=== PATIENT | female | born 1995 | race Caucasian/White ===

== ENCOUNTER 2019-09-08 15:10 | Emergency (ER) | payer OTHER, SELFPAY ==
--- NOTE | ~2019-09-08 | XR_ITS ---
EXAMINATION: XR chest 1V portable INDICATION: Cough and fever TECHNIQUE: Portable AP chest at 1520 hours COMPARISON: None available FINDINGS: The lungs are free of acute opacities. There is no pleural effusion or pneumothorax. The ca rdiomediastinal silhouette is normal. The visualized bones and soft tissues are unremarkable. IMPRESSION: 1. No acute cardiopulmonary abnormality. Reviewed, dictated and finalized at location B.
[2019-09-08 15:18] VITALS: BP 107/83; PULSE 105; RESP 18; TEMP 36.9; O2SAT 100
--- NOTE | 2019-09-08 15:50 | ED.GENADULT ---
HPI - General Adult General Chief complaint: Upper Respiratory Infection Stated complaint: fever, body ache, cough, worsening yesterday Time Seen by Provider: 09/08/19 15:14 Source: patient Mode of arrival: ambulatory Limitations: no limitations History of Present Illness HPI narrative: Patient is a 24-year-old female who presents to emergency department for evaluation of flulike symptoms for the last day fever chills body aches congestion rhinorrhea cough denies vomiting or diarrhea. Has not taken anything for her symptoms and presents in no distress. Related Data Allergies Allergy/AdvReac Type Severity Reaction Status Date / Time Penicillins Allergy Unknown Unknown Verified 09/08/19 15:24 Review of Systems Review of Systems: All systems reviewed & are unremarkable except as noted in HPI and below PMFSH Family History Family History (Updated 11/05/16 @ 10:53 by DOCTOR UNKNOWN) Other Diabetes mellitus Family history of alcoholism Family history of malignant neoplasm of cervix Family history of thyroid disease Social History Social History (Updated 09/08/19 @ 15:51 by Adithya Tirado PA-C) Smoking status: Current every day smoker Alcohol intake: current Exam Narrative: Exam Narrative: GENERAL: Well-appearing, well-nourished, and in no acute distress. HEAD: Normocephalic, atraumatic. EYES: PERRLA and EOMI. ENT: Nares clear, no rhinorrhea or epistaxis. Mucous membranes moist. NECK: Supple. No adenopathy or masses. CHEST: Clear to auscultation. No respiratory distress. No wheezes rales or rhonchi HEART: Regular rate and rhythm. No murmur heard. EXTREMITIES: Normal range of motion. No edema. SKIN: Warm, dry, no rash. NEURO: No focal deficits. Alert and oriented x3. Cranial nerves II through XII grossly intact PSYCH: Normal mood and affect. Course Course Emergency Course: Patient in the room aware of case findings treatment plan and diagnosis agreeing to follow-up as directed Vital Signs Vital signs: Vital Signs Temperature 98.5 F 09/08/19 15:18 Pulse Rate 105 H 09/08/19 15:18 Respiratory Rate 18 09/08/19 15:18 Blood Pressure 107/83 09/08/19 15:18 Pulse Oximetry 100 09/08/19 15:18 Temperature 98.5 F 09/08/19 15:18 Pulse Rate 105 H 09/08/19 15:18 Respiratory Rate 18 09/08/19 15:18 Blood Pressure 107/83 09/08/19 15:18 Pulse Oximetry 100 09/08/19 15:18 Medical Decision Making MDM Narrative Medical decision making narrative: Patient in the room aware of case findings treatment plan diagnosis afebrile nontoxic-appearing felt appropriate for outpatient reevaluation agreeing to follow-up as directed or to return if symptoms worsen or concerns Vital Signs Vital Signs: Vital Signs Temperature 98.5 F 09/08/19 15:18 Pulse Rate 105 H 09/08/19 15:18 Respiratory Rate 18 09/08/19 15:18 Blood Pressure 107/83 09/08/19 15:18 Pulse Oximetry 100 09/08/19 15:18 Temperature 98.5 F 09/08/19 15:18 Pulse Rate 105 H 09/08/19 15:18 Respiratory Rate 18 09/08/19 15:18 Blood Pressure 107/83 09/08/19 15:18 Pulse Oximetry 100 09/08/19 15:18 Lab Data Labs: Influenza B Screen Positive Reference Range: Negative Strep Screen Presumptive Negative *(Reference Range: Negative)* Discharge Plan Discharge Clinical Impression: Influenza Patient Disposition: Home, Self-Care Condition: Stable Instructions: Antibiotic Form, Influenza (ED) Additional Instructions: Follow up with your primary care doctor in 5-7 days for re-evaluation. Go to ER for worsening pain, vision changes, nausea/vomiting, fever/chills, weakness, chest pain, shortness of breath, numbness/tingling, slurred speech, difficulty walking, change in mental status etc. or any other concerns. Stay well-hydrated Take any prescribed medications as directed. Prescriptions: New oseltamivir [Tamiflu] 75 mg capsule
== END 2019-09-08 16:19 | disposition home or self-care (01) ==
PROVIDERS: Emergency Provider Emergency Medicine
DX: J10.1 Influenza due to other identified influenza virus with other respiratory manifestations (principal); F17.200 Nicotine dependence, unspecified, uncomplicated
CPT/HCPCS: 71045; 87081; 87804; 87880; 99283

== ENCOUNTER 2019-10-25 12:40 | Emergency (ER) | payer OTHER, SELFPAY ==
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
[2019-10-25 12:44] VITALS: BP 123/82; PULSE 93; RESP 18; TEMP 37.5; O2SAT 98
--- NOTE | 2019-10-25 12:55 | PC.NURSE ---
Patient also reports pain to her right 5th finger as well as pain and a laceration to her left knee.
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
== END 2019-10-25 14:36 | disposition home or self-care (01) ==
PROVIDERS: Emergency Provider Emergency Medicine
DX: S09.90XA Unspecified injury of head, initial encounter (principal); F17.200 Nicotine dependence, unspecified, uncomplicated; Y04.2XXA Assault by strike against or bumped into by another person, initial encounter
CPT/HCPCS: 70450; 70486; 72125; 99284; A9270

== ENCOUNTER 2020-04-12 15:39 | Emergency (ER) | payer OTHER, SELFPAY ==
[2020-04-12 15:43] VITALS: BP 125/65; PULSE 102; RESP 18; TEMP 36.2; O2SAT 100
[2020-04-12 16:00] LABS: Basophils Absolute Auto 0.1 K/mm3 (0.0-0.1); Basophils Percent Auto 0.6 % (0.2-1.2); Eosinophils Absolute Auto 0.3 K/mm3 (0-0.3); Eosinophils Percent Auto 2.7 % (0-4.4); Immature Granulocyte Absolute 0.03 K/mm3 (0.00-0.031); Immature Granulocyte Percent A 0.3 % (0-0.5); Lymphocytes Percent Auto 20.6 % (18.3-44.2); Mean Corpuscular Hemoglobin 30.4 pg (26-34); Mean Corpuscular Volume 86.8 fl (80-100); Mean Platelet Volume 10.1 fl (7.4-10.4); Monocytes Absolute Auto 0.6 K/mm3 (0.1-0.6); Monocytes Percent Auto 6.7 % (2.6-8.5); Neutrophils Absolute Auto 6.4 K/mm3 (1.3-6.7); Neutrophils Percent Auto 69.1 % (45.5-73.1); Platelet Count Result 263 k/mm3 (150-375); Red Blood Count 4.61 M/mm3 (4.2-5.4); Red Cell Distribution Width 12.2 % (11.5-14.5); White Blood Count 9.2 K/mm3 (4.5-10.0)
[2020-04-12 16:09] LABS: Alanine Aminotransferase 19 U/L (4-35); Albumin Level 4.1 g/dL (3.5-5.1); Alkaline Phosphatase 57 U/L (38-126); Anion Gap 9 mmol/L (8-16); Aspartate Amino Transferase 25 U/L (14-36); Bilirubin,Total 0.4 mg/dL (0.2-1.3); Blood Urea Nitrogen 5 mg/dL (7-17); Calcium 8.9 mg/dL (8.4-10.2); Carbon Dioxide 26 mmol/L (22-30); Chloride 103 mmol/L (98-107); Estimated Glomerular Filt Rate > 60; Glucose 91 mg/dL (65-105); Lipase 55 U/L (23-300); Potassium 3.8 mmol/L (3.4-5.0); Sodium 138 mmol/L (137-145)
--- NOTE | 2020-04-12 17:45 | ED.ABDPAIN ---
HPI - Abdominal Pain General Chief Complaint: Abdominal Pain Stated Complaint: left abd pain Time Seen by Provider: 04/12/20 17:11 Source: patient History of Present Illness HPI narrative: 25-year-old female presents to emergency department for left flank pain that started around 230 this morning. Patient states she was over at her friend's house when the pain suddenly hit her. Patient states she has never had this pain before in the past. Pain started in the back and wraps around to her left flank area. She has not taken anything for the pain. She states she threw up when she had this pain. She states she just has the residual pain now. Patient is 7 weeks , last menstrual period at the beginning of February. No vaginal bleeding or discharge. No urinary symptoms. Normal bowel movements. Related Data Allergies Allergy/AdvReac Type Severity Reaction Status Date / Time Penicillins Allergy Unknown Unknown Verified 04/12/20 18:15 Review of Systems Review of Systems: Narrative: CONSTITUTIONAL: Denies fever, chills, or sweats. EYES: Denies visual changes, redness, or discharge. ENT: Denies rhinorrhea, congestion, sore throat, or otalgia. CARDIOVASCULAR: Denies chest pain, palpitations, or edema. RESPIRATORY: Denies cough or dyspnea. GASTROINTESTINAL: Reports left flank pain, and vomiting earlier today GENITOURINARY: Denies dysuria or hematuria. SKIN: Denies rash or itching. MUSCULOSKELETAL: Denies back pain, joint pain, or myalgia. NEUROLOGIC: Denies headache, numbness, dizziness, or weakness. PSYCHIATRIC: Denies anxiety or depression. All systems reviewed & are unremarkable except as noted in HPI and below (ROS) PMFSH Family History Family History Other Diabetes mellitus Family history of alcoholism Family history of malignant neoplasm of cervix Family history of thyroid disease Social History Social History Smoking status: Current every day smoker Alcohol intake: current Gender identity (if verbalized by the patient): Female Exam Narrative: Exam Narrative: GENERAL: Well-appearing, well-nourished, and in no acute distress. HEAD: Normocephalic, atraumatic. EYES: PERRLA and EOMI. ENT: Nares clear, no rhinorrhea or epistaxis. Mucous membranes moist. NECK: Supple. CHEST: Clear to auscultation. No respiratory distress. HEART: Regular rate and rhythm. No murmur heard. Normal peripheral pulses. ABDOMEN: Soft, nontender, nondistended, normal active bowel sounds. EXTREMITIES: Normal range of motion. No edema. SKIN: Warm, dry, no rash. NEURO: No focal deficits. Alert and oriented x3. PSYCH: Normal mood and affect. Procedures Other Procedure Procedure 1: Other Procedure: Bedside ultrasound shows IUP with heart rate present. Course Reevaluation(s) Reevaluation #1: 1919 -reevaluated patient, no new complaints. No pain at this time. Vital Signs Vital signs: Vital Signs Temperature 36.2 C L 04/12/20 15:43 Pulse Rate 102 H 04/12/20 15:43 Respiratory Rate 18 04/12/20 15:43 Blood Pressure 125/65 04/12/20 15:43 Pulse Oximetry 100 04/12/20 15:43 Temperature 36.6 C 04/12/20 20:33 Pulse Rate 87 04/12/20 20:33 Respiratory Rate 16 04/12/20 20:33 Blood Pressure 133/78 04/12/20 20:33 Pulse Oximetry 97 04/12/20 20:33 MDM - Abdominal Pain MDM Narrative Medical decision making narrative: 1999 -reevaluated patient, no new complaints. No pain at this time. Blood work and vital signs unremarkable. I did a bedside ultrasound of the patient's left kidney, no signs of hydronephrosis. Left flank pain differential diagnosis includes passing of a kidney stone, gas movement in bowels, muscle spasm. Since patient does not have any pain at this time, we will hold on ordering any further imaging. 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 Counseled patie
[2020-04-12] MEDS: ACETAMINOPHEN 325 MG TABLET 650 MG PO (18:14)
[2020-04-12 18:15] VITALS: BP 132/71; PULSE 89; RESP 14; O2SAT 100
--- NOTE | 2020-04-12 18:16 | PC.NURSE ---
Pt unable to provide urine at this time, declined straight cath, drinking water and will try again and notify nurse when specimen is provided.
[2020-04-12 19:23] LABS: Add Urine Microscopic? YES; Appearance Urine Clear (Clear); Bacteria Urine Trace /hpf; Bilirubin Urine Negative (Negative); Blood Urine Negative (Negative); Color Urine Straw (Yellow); Glucose Urine UA Negative (Negative); Ketones Urine Negative (Negative); Leukocyte Esterase Ur 1+ LEU/UL (Negative); Nitrate Urine Negative (Negative); Protein Urine Negative (Negative); RBC Urine 0-2 /hpf (0-2); Specific Grav Ur 1.008 (1.001-1.035); Squamous Epithelial Cell Urine Moderate /hpf (Few); Urobilinogen Urine Negative mg/dL (<2.0); WBC Urine 0-3 /hpf
[2020-04-12 20:33] VITALS: BP 133/78; PULSE 87; RESP 16; TEMP 36.6; O2SAT 97
== END 2020-04-12 20:36 | disposition home or self-care (01) ==
PROVIDERS: Emergency Medicine; Physician Assistant; Emergency Provider Emergency Medicine
DX: R10.9 Unspecified abdominal pain (principal); F17.200 Nicotine dependence, unspecified, uncomplicated; O26.891 Other specified pregnancy related conditions, first trimester; Z3A.01 Less than 8 weeks gestation of pregnancy
CPT/HCPCS: 36415; 80053; 81001; 81025; 83690; 84702; 85025; 99283; A9270

== ENCOUNTER 2020-07-05 12:17 | Outpatient (CLI) | payer OTHER, SELFPAY ==
--- NOTE | ~2020-07-05 | US_ITS ---
EXAMINATION: US OB /maternal detail DATE: 07/05/2020 13:16 INDICATION: Second trimester anatomic survey TECHNIQUE: Real-time ultrasound of the pelvis was performed. COMPARISON: None. FINDINGS: There is a single living fetus in vertex presentation. The placenta is posterior. heart rate is 154 beats per minute (bpm). cardiac activity and movement are noted. The amniotic fluid index is subjectively normal. A small echogenic focus is noted in the heart. The following anatomy was identified as normal: 4 chamber heart 3 vessel cord cord insertion kidneys urinary bladder stomach spine diaphragm ventricles cisterna magna cerebellum The following biometric data were obtained: Biparietal diameter (BPD): 4.4 cm; head circumference (HC): 16.4 cm; abdominal circumference (AC): 14 .3 cm; femur length (FL): 2.7 cm. These measurements are concordant. Estimated weight is 274 g +/- 41 g, which correlates with the 9th percentile when 11/22/2020 is u sed as estimated date of delivery. As single measurements, these parameters are each equal to the following estimated gestational ages w ith ranges of +/- 2 standard deviations: BPD: 19 weeks 3 days +/- 1 weeks 5 days. HC: 19 weeks 1 days +/- 1 weeks 3 days. AC: 19 weeks 5 days +/- 2 weeks 0 days. FL: 18 weeks 3 days +/- 1 weeks 6 days. estimated gestational age based solely on measurements from this exam is 19 weeks 1 days +/- 1 weeks 2 days. IMPRESSION: 1. Single living fetus in vertex presentation. 2. Estimated weight is 274 g +/- 41 g, which correlates with the 9th percentile when 11/22/2020 i s used as estimated date of delivery. 3. Echogenic intracardiac focus of unclear significance. Recommend correlation with maternal and preg dillan risk factors. Reviewed, dictated and finalized at location A. [employer] IMPRESSION: 1. Single living fetus in vertex presentation. 2. Estimated weight is 274 g +/- 41 g, which correlates with the 9th perc entile when 11/22/2020 is used as estimated date of delivery. 3. Echogenic intracardiac focus of unclear significance. Recommend correlation with maternal and risk factors.
== END 2020-07-05 12:18 | disposition home or self-care (01) ==
PROVIDERS: Visit Provider Obstetrics & Gynecology
DX: Z36.9 Encounter for antenatal screening, unspecified (principal)
CPT/HCPCS: 76805

== ENCOUNTER 2020-10-10 16:32 | Observation (INO) | payer OTHER, SELFPAY ==
[2020-10-10] VITALS (7 sets, daily range): BP systolic 110–127; BP diastolic 58–77; PULSE 83–107
--- NOTE | ~2020-10-10 | US_ITS ---
EXAMINATION: US OB BPP wo non-stress DATE: 10/10/2020 14:52 INDICATION: Nonreactive nonstress test. Third trimester. TECHNIQUE: Real-time pelvic ultrasound was performed. COMPARISON: Ultrasound 07/05/2020 FINDINGS: There is a single living fetus in vertex presentation. The placenta is fundal and posterior. h eart rate is 125 beats per minute (bpm). Biophysical profile performed by the technologist: breathing (30 sec sustained breathing in 30 minutes): 2 out of 2 movement (3 gross body movements in 30 minutes): 2 out of 2 tone (one episode of sbmsofv-jiiidgkrk-azadwdu limb movement): 2 out of 2 Amniotic fluid pocket (2 cm): 2 out of 2 Total score: 8 out of 8 IMPRESSION: 1. Single living fetus in vertex presentation. 2. Biophysical profile 8 out of 8. Reviewed, dictated and finalized at location A.
--- NOTE | 2020-10-10 14:58 | PC.NURSE ---
Dr Jonhson notified of contractions, orders for FFN and SVE. Cont to monitor contractions and call Dr De Santiago with FFN results.
[2020-10-10 16:01] LABS: Fetal Fibronectin Negative
--- NOTE | 2020-10-10 16:26 | PC.NURSE ---
Dr De Santiago notified of FFN results and current contractions pattern, orders received.
[2020-10-10] MEDS: TERBUTALINE SULFATE 1 MG/ML VIAL 0.25 MG SUB-Q (16:36)
[2020-10-10 17:32] LABS: Glucose Point of Care 97 (65-105)
--- NOTE | 2020-10-10 19:05 | PC.NURSE ---
spoke with Dr. De Santiago- pt not feeling contractions and wanting to d/c home. order received to d/c home.
--- NOTE | 2020-10-31 08:38 | PM.OBTRLD ---
OB - Triage/Final Diagnosis Visit Information Reason for evaluation: other (nonreactive NST in office) Comments/Additional reasons for admission: I have assessed the risk for this patient, Louann Meade Juan Luis, and determined that she would benefit from observation care. Evaluation Laboratory results: Laboratory Tests 10/10/20 10/10/20 15:10 17:29 POC Capillary Glucose 97 Fibronectin Negative
== END 2020-10-10 19:18 | disposition home or self-care (01) ==
PROVIDERS: Obstetrics & Gynecology; Admitting Provider Obstetrics & Gynecology Gynecology; Visit Provider Obstetrics & Gynecology Gynecology
DX: O60.03 Preterm labor without delivery, third trimester (principal); Z3A.33 33 weeks gestation of pregnancy
CPT/HCPCS: 76819; 82731; 82948; 96372; G0378; G0379; J3105

== ENCOUNTER 2020-10-20 13:39 | Observation (INO) | payer OTHER, SELFPAY ==
[2020-10-20] VITALS (70 sets, daily range): BP systolic 116; BP diastolic 74; PULSE 28–121; TEMP 36.6; O2SAT 85–100; BMI 29.7
--- NOTE | 2020-10-20 14:31 | OBADM ---
This patient, Louann Mcknight, admitted to the OB room [facility] for observation. Patient oriented to hospital policies and general routines including ID bracelet, bed and alarms, visiting hours, pain management, procedures, bathroom and other care routines, personal items, smoking policy, room service/diet, call light, and visiting hours. Patient is encouraged to report perceived risks to care and to ask questions if she does not understand what she is told or what she should do.
[2020-10-20] MEDS: TERBUTALINE SULFATE 1 MG/ML VIAL 0.25 MG SUB-Q ×2 (14:40→17:35)
[2020-10-20 14:58] LABS: Add Urine Microscopic? YES; Appearance Urine Cloudy (Clear); Bacteria Urine Trace /hpf; Bilirubin Urine Negative (Negative); Blood Urine Negative (Negative); Color Urine Yellow (Yellow); Glucose Urine UA Negative (Negative); Ketones Urine Negative (Negative); Leukocyte Esterase Ur 3+ LEU/UL (Negative); Mucus Urine Rare /lpf; Nitrate Urine Negative (Negative); Protein Urine Negative (Negative); Specific Grav Ur 1.009 (1.001-1.035); Squamous Epithelial Cell Urine Many /hpf (Few); Urobilinogen Urine Negative mg/dL (<2.0)
--- NOTE | 2020-11-15 10:01 | PM.OBTRLD ---
OB - Triage/Final Diagnosis Visit Information Comments/Additional reasons for admission: I have assessed the risk for this patient, Louann Mcknight, and determined that she would benefit from observation care. Evaluation Laboratory results: Laboratory Tests 10/20/20 14:47 Urine Color Yellow Urine Appearance Cloudy H Urine pH 6.0 Ur Specific [place] 1.009 Urine Protein Negative Urine Glucose (UA) Negative Urine Ketones Negative Ur Blood (Man) Negative Urine Nitrate Negative Urine Bilirubin Negative Urine Urobilinogen Negative Leukocyte Esterase Rfl 3+ H Urine RBC 11-20 H Urine WBC 4-6 H Ur Squamous Epith Cells Many H Urine Bacteria Trace Urine Mucus Rare Final Diagnosis (1) contractions: Code(s): O47.9 - False labor, unspecified Status: Acute
== END 2020-10-20 20:12 | disposition home or self-care (01) ==
PROVIDERS: Admitting Provider Obstetrics & Gynecology; Visit Provider Obstetrics & Gynecology
DX: O47.03 False labor before 37 completed weeks of gestation, third trimester (principal); Z3A.35 35 weeks gestation of pregnancy
CPT/HCPCS: 81001; 96372; G0378; G0379; J3105

== ENCOUNTER 2020-11-10 13:42 | Outpatient (RCR) | payer OTHER, SELFPAY ==
[2020-11-08 10:45] VITALS: BP 117/81; PULSE 81
--- NOTE | 2020-11-08 11:53 | PC.NURSE ---
BPP 01/22, Spoke with Dr. Johnson at 1151, orders to discharge patient to home with follow up in office.
--- NOTE | ~2020-11-10 | US_ITS ---
EXAMINATION: US OB BPP wo non-stress DATE: 11/08/2020 11:45 INDICATION: Nonreactive nonstress test. Third trimester. TECHNIQUE: Real-time pelvic ultrasound was performed. COMPARISON: Ultrasound 10/10/2020 FINDINGS: There is a single living fetus in vertex presentation. The placenta is posterior and fundal. h eart rate is 129 beats per minute (bpm). Biophysical profile performed by the technologist: breathing (30 sec sustained breathing in 30 minutes): 2 out of 2 movement (3 gross body movements in 30 minutes): 2 out of 2 tone (one episode of ywtxjdg-lrsfuacyb-bkyhnxz limb movement): 2 out of 2 Amniotic fluid pocket (2 cm): 2 out of 2 Total score: 8 out of 8 IMPRESSION: 1. Single living fetus in vertex presentation. 2. Biophysical profile 8 out of 8. Reviewed, dictated and finalized at location B.
--- NOTE | ~2020-11-10 | US_ITS ---
EXAMINATION: US OB BPP wo non-stress DATE: 11/10/2020 15:56 CDT INDICATION: Gestational diabetes TECHNIQUE: Real-time transabdominal obstetric ultrasound. FINDINGS: Ultrasound dated There is a single living fetus in vertex presentation. The placenta is posterior without placenta pr evia. cardiac activity and movement is noted with a heart rate of 141 beats per minute. Biophysical profile: breathin of 2 movement: 2 of 2 tone: 2 of 2 Amniotic flud pocket: 2 of 2 Total score: 8 of 8 IMPRESSION: 1. Single living intrauterine in vertex presentation. 2: Total biophysical profile score of 8/8. Reviewed, dictated and finalized at location A.
[2020-11-10 18:39] VITALS: BP 118/79; PULSE 87
== END 2020-11-23 07:44 | disposition home or self-care (01) ==
LOC: ANHOBOP 13:42
PROVIDERS: Visit Provider Obstetrics & Gynecology
DX: O24.419 Gestational diabetes mellitus in pregnancy, unspecified control (principal); Z3A.38 38 weeks gestation of pregnancy
CPT/HCPCS: 59025; 76819

== ENCOUNTER 2020-11-12 22:02 | Outpatient (CLI) | payer OTHER, SELFPAY ==
[2020-11-12 22:42] VITALS: BP 128/87; PULSE 86
== END 2020-11-12 22:46 | disposition home or self-care (01) ==
LOC: ANHOBOP 22:36 → ANHLDR 22:37
PROVIDERS: Visit Provider Obstetrics & Gynecology
DX: Z03.71 Encounter for suspected problem with amniotic cavity and membrane ruled out (principal)
CPT/HCPCS: 59025; 84112; 99199

== ENCOUNTER 2020-11-16 04:59 | Inpatient (IN) | payer OTHER, SELFPAY ==
[2020-11-16] VITALS (75 sets, daily range): BP systolic 87–137; BP diastolic 50–87; PULSE 65–100; RESP 16; TEMP 36.6–37.1; O2SAT 96–100; BMI 30.4
[2020-11-16 05:50] LABS: Basophils Percent Auto 0.4 % (0.2-1.2); Eosinophils Absolute Auto 0.1 K/mm3 (0-0.3); Eosinophils Percent Auto 1.2 % (0-4.4); Hematocrit 31.4 % (37.0-47.0); Hemoglobin 10.5 g/dL (12.0-15.0); Immature Granulocyte Absolute 0.06 K/mm3 (0.00-0.031); Immature Granulocyte Percent A 0.6 % (0-0.5); Lymphocytes Absolute Auto 1.75 K/mm3 (0.9-3.2); Lymphocytes Percent Auto 18.2 % (18.3-44.2); Mean Corpuscular HGB Conc 33.4 g/dl (32-36); Mean Corpuscular Hemoglobin 28.8 pg (26-34); Mean Platelet Volume 10.2 fl (7.4-10.4); Monocytes Absolute Auto 0.7 K/mm3 (0.1-0.6); Monocytes Percent Auto 6.8 % (2.6-8.5); Neutrophils Percent Auto 72.8 % (45.5-73.1); Platelet Count Result 222 k/mm3 (150-375); Red Blood Count 3.65 M/mm3 (4.2-5.4); Red Cell Distribution Width 12.4 % (11.5-14.5); White Blood Count 9.6 K/mm3 (4.5-10.0)
[2020-11-16] MEDS: LACTATED RINGERS 1,000 ML 125 ML IV CONT ×3 (06:10→10:33)
[2020-11-16] MEDS: OXYTOCIN 30 UNITS/NS 500 ML 30 UNITS/500 ML BAG IV CONT (06:35)
--- NOTE | 2020-11-16 06:49 | WPDANESEPPF ---
Anes - Initial Pre Proc Eval Procedure: labor epidural Date/Time: 11/16/20 06:49 Surgeon: Rudolph Johnson MD Pre Op Diagnosis: labor pain Pre Op Diagnosis: IOL Patient Data Age: 25 Gender: F Height: 1.47 m Weight: 66 kg Last Vital Signs Pulse 73 11/16/20 06:30 BP 126/82 11/16/20 06:30 Allergies Allergy/AdvReac Type Severity Reaction Status Date / Time Penicillins Allergy Mild Rash Verified 10/24/20 12:34 amoxicillin Allergy Rash Verified 10/24/20 12:34 Home Medications Medication Instructions Recorded Confirmed Type Humulin N NPH U-100 Insulin 20 unit SUBCUT HS 10/10/20 10/10/20 History ergocalciferol (vitamin D2) 1,250 mcg PO WEEKLY 10/10/20 10/10/20 History Laboratory Tests 11/16/20 11/16/20 05:36 05:36 WBC 9.6 K/mm3 K/mm3 (4.5-10.0) RBC 3.65 M/mm3 L M/mm3 (4.2-5.4) Hgb 10.5 g/dL L D g/dL (12.0-15.0) Hct 31.4 % L % (37.0-47.0) MCV 86.0 fl fl (80-100) MCH 28.8 pg pg (26-34) MCHC 33.4 g/dl g/dl (32-36) RDW 12.4 % % (11.5-14.5) Plt Count 222 k/mm3 k/mm3 (150-375) MPV 10.2 fl fl (7.4-10.4) Immature Gran % (Auto) 0.6 % H % (0-0.5) Neut % (Auto) 72.8 % % (45.5-73.1) Lymph % (Auto) 18.2 % L % (18.3-44.2) [place] % (Auto) 6.8 % % (2.6-8.5) Eos % (Auto) 1.2 % % (0-4.4) Baso % (Auto) 0.4 % % (0.2-1.2) Lymph # (Auto) 1.75 K/mm3 K/mm3 (0.9-3.2) [place] # (Auto) 0.7 K/mm3 H K/mm3 (0.1-0.6) Eos # (Auto) 0.1 K/mm3 K/mm3 (0-0.3) Baso # (Auto) 0.0 K/mm3 K/mm3 (0.0-0.1) Abs Immat Gran (auto) 0.06 K/mm3 H K/mm3 (0.00-0.031) Absolute Neuts (auto) 7.0 K/mm3 H K/mm3 (1.3-6.7) Absolute Nucleated RBC 0.0 K/mm3 K/mm3 (0.0-0.012) Nucleated RBC % 0.0 % % (0.0-0.2) RPR Pending Patient hx anesthesia problems: none Family hx anesthesia problems: none PMFSH Past Medical History Medical History (Updated 11/16/20 @ 06:50 by Gui Pena DO) Anxiety Depression GDM (gestational diabetes mellitus) Graves disease Family History Family History (Updated 10/24/20 @ 12:38 by Krishna Ahumada RN) Grandparent Diabetes mellitus Family history of thyroid disease Father Family history of alcoholism Mother Family history of thyroid disease Family history of malignant neoplasm of cervix Heart disease Coronary stent patent Cardiac defibrillator in place Social History Social History Smoking status: Light tobacco smoker Tobacco type: cigarettes Alcohol intake: current Substance use: current Gender identity (if verbalized by the patient): Female Spiritual care concerns: No Anes - Eval Final PreProcedure Day of Procedure 11/16/20 06:49 Patient weight: obese ASA classification: III Anesthesia type and monitoring: regional epidural Informed Consent: The patient's anesthetic plan and its attendant risks and benefits were discussed with the patient/family/POA. Questions were solicited and answers provided to the satisfaction of the patient/family/POA.
[2020-11-16 07:01] LABS: Rapid Plasma Reagin Non-Reactive (NonReactive)
--- NOTE | 2020-11-16 08:22 | WPDOBADMIT ---
Obstetrics - Admit Note Admission Note: record reviewed. No pertinent additions to the history and/or any subsequent changes in the physical findings that are not consistent with the expected course of the were found. Arom clear fluid 3-/-2 vertex Additions to the history and/or subsequent changes in the physical findings follow. None.
[2020-11-16 10:32] LABS: Glucose Point of Care 95 mg/dl (65-105)
[2020-11-16 11:58] LABS: Glucose Point of Care 69 mg/dl (65-105)
[2020-11-16] MEDS: OXYTOCIN 30 UNITS/NS 500 ML 30 UNITS/500 ML BAG 125 UNITS IV CONT (13:03)
--- NOTE | 2020-11-16 15:15 | PC.NURSE ---
Patient transferred to post room #1515 via wheelchair. Support person present. Oriented to unit, room, information board, rooming in, admission packet and security measures. Patient verbalizes understanding.
[2020-11-16] MEDS: IBUPROFEN 600 MG TABLET PO (15:58)
[2020-11-17] VITALS: BP 115/75; PULSE 61; RESP 16; TEMP 36.6
[2020-11-17] MEDS: IBUPROFEN 600 MG TABLET PO ×2 (01:25→08:58)
--- NOTE | 2020-11-17 04:02 | PM.OBPRVD ---
OB - Delivery Note Procedure Delivery date: 11/16/20 Procedure: events: Labor Induction Intrapartal events: None Induction method: AROM and per pitocin protocol Delivery monitor: external FHT and external uterine Route of delivery: Laceration Description: None Specimen: No Quantitative Blood Loss (ml): 75 Anesthesia type: Epidural Disposition: floor Baby Date of : 11/16/20 Time of : 12:33 Weeks of gestation at delivery: 39 gender: Female Weight (pounds): 5 Weight (ounces): 15 presentation: vertex Placenta delivery description: Spontaneous cord vessel description: 3 Vessels, Clamped/Cut and Around Body x1 score one minute: 9 score five minutes: 9
[2020-11-17 04:45] VITALS: BP 120/88; PULSE 61; RESP 16; TEMP 36.8
[2020-11-17 05:57] LABS: Hematocrit 34.7 % (37.0-47.0); Hemoglobin 11.5 g/dL (12.0-15.0)
--- NOTE | 2020-11-17 07:26 | WPDANLDPN2 ---
Anes-Prog Note L&D Date/Time: 11/17/20 07:26 Comfortable throughout: labor and delivery Neuraxial method: epidural Epidural/Spinal procedure site: clean & non-tender Neuro status: Neuro function grossly intact. Cardiovascular status: normal Respiratory status: normal Airway patency: baseline Mental status: baseline Post-Op hydration status: normal Vital Signs: Last Vital Signs Temp 36.8 C 11/17/20 04:45 Pulse 61 11/17/20 04:45 Resp 16 11/17/20 04:45 BP 120/88 11/17/20 04:45 Pulse Ox 99 11/16/20 15:20 Pain score (VAS): 06/26 I/O: Intake & Output 11/16/20 11/16/20 11/17/20 15:59 23:59 07:59 Intake Total 2000 Output Total 75 Balance 1925 Post-procedural complaints: none Patient feedback: Patient satisfied with anesthetic care.
[2020-11-17 08:00] VITALS: BP 120/77; PULSE 81; RESP 18; TEMP 36.6
[2020-11-17] MEDS: DOCUSATE SODIUM 100 MG CAPSULE PO (08:58)
[2020-11-17] MEDS: BENZOCAINE 20% AER SPR (*SP) 56 GM CAN 1 SPRAY TOPICAL (08:58)
--- NOTE | 2020-11-17 09:00 | PC.NURSE ---
Patient was given the opportunity to view the discharge video Mother & Baby Care, The First Two Weeks and to ask questions. Patient declined viewing the video and has been given the mother/baby guide for home reference.
[2020-11-17 12:06] VITALS: BP 110/78; PULSE 76; RESP 16; TEMP 36.5; O2SAT 100
--- NOTE | 2020-11-17 13:37 | PC.NURSE ---
Self care and infant care discharge instructions given including follow up visit date and time. Mother verbalized understanding. No questions or concerns voiced. Very pleasant and excited for discharge.
--- NOTE | 2020-11-17 16:00 | PCCCNOTE ---
Care Coordination met with pt. this morning to discuss discharge planning. Pt.'s current D/C plan is to return home with FOTimbo, her daughter, and baby. Pt. states that she has everything needed to safely bring baby home. Pt. confirms that she has a car seat for baby. Pt. states SEBASTIAN is very supportive and that she also has local family support. Pt.'s daughter is currently staying with pt.'s mother. Pt. denies any prior DCFS activity, she is not current with [facility] but has been provided resources. Pt. will bottle feed baby and has a assurance engineer set up for baby. Pt. did admit to Marijuana use at time of admission. Pt. was not tested, baby's urine was tested and came back negative. Pt. admits that the Marijuana use was to help her nausea and lack of appetite, pt. states she stopped Marijuana use a couple months ago since she no longer saw the need for it. Pt. has no concerns about bringing baby home. No further need for CC services at this time.
[2020-11-18 08:44] VITALS: BP 120/83; PULSE 79; RESP 20; TEMP 36.7; O2SAT 99
--- NOTE | 2020-12-05 11:00 | P.DS_ITS ---
DS: Admitting Diagnosis Admitting Diagnosis Admitting Diagnosis: labor induction DS: Discharge Diagnosis Discharge Diagnosis (1) (normal spontaneous vaginal delivery): Code(s): O80 - Encounter for full-term uncomplicated delivery Status: Acute OB - DS: Summary OB Procedures : NST and Ultrasound OB Procedures Intrapartum: Spontaneous Vag Delivery OB Procedures: : None Time Spent with Patient Time attestation: Total time spent providing and/or coordinating discharge services: DS: Data Data Completed and Pending Completed studies during hospitalization: Pending at discharge 11/16/20 13:49 Surgical [PTH] Routine Discharge Plan Discharge Consulting providers: Parker Cano ; Gui Pena Discharging Clinician: Ronit Johnson Patient Disposition: Home, Self-Care Activity: pelvic rest Diet: regular Discharge Instructions: Education: Mom and Baby Guide Given to: Mother Follow-Up: Call your delivering provider's office for an appointment to be seen in: 4 Weeks Mom and baby should come to the [facility] for the follow-up appointment. Appointment Date/Time: Wednesday, November 18, 2020 at 9:00 am What to expect at your follow-up visit: Blood Pressure Check Physical Assessment Call [phone] if you are unable to keep your appointment time. BREAST CARE: * Wear a snug supportive bra. Bottle Feeding: * May apply ice packs EPISIOTOMY/PERINEAL CARE: * Until bleeding stops, use your daily bottle after urinating * Change your pad frequently throughout the day * You may take sitz baths several times a day (fill your bathtub with warm water and soak for 20 minutes.) Do NOT bathe in the water * No tub baths until seen by your physician - You may shower ACTIVITY: * Rest as much as possible. * Do not exercise or lift anything heavier than your baby (such as laundry or other children.) * Avoid stairs or driving as much as possible. * Do not put anything into the vagina. No douching, tampons, or sexual activity until seen by physician. NOTIFY PHYSICIAN IF YOU HAVE ANY QUESTIONS OR IF ANY OF THE FOLLOWING SYMPTOMS OCCUR: * If your episiotomy becomes red, swollen, or more painful than what you have experienced in the hospital. * If your vaginal bleeding becomes foul smelling. * If your vaginal bleeding becomes more heavy than a period or if your bleeding changes from pink to bright red. However, you may pass an occasional walnut- sized clot once or twice for the first week . * If you experience a sharp, shooting pain in you calves. * If you discover a hard, reddened area on your breast or if you experience flu- like symptoms. DIET: * Eat regular, well-balanced meals. * Drink plenty of fluids daily. If , drink to thirst. Patient Instructions: Antibiotic Form Stand Alone Forms: General Discharge Information Follow-up/Referrals: Rudolph Johnson MD [Physician] - 6 Weeks Discharge Medications: Continued ergocalciferol (vitamin D2) 1,250 mcg (50,000 unit) capsule 1,250 mcg PO WEEKLY RF: 0 Discontinued Humulin N NPH U-100 Insulin 100 unit/mL suspension 20 unit SUBCUT HS RF: 0 Date of admission: 11/16/20 04:59 Primary Care Provider: PHYSICIAN,TEAR DOWN WORKER Admitting Provider: Rudolph Johnson Attending physician on admission: Rudolph Johnson Condition: Sta
== END 2020-11-17 14:23 | disposition home or self-care (01) | DRG 560 ==
LOC: ANHLDR 05:02 → ANHOB2 16:15
PROVIDERS: Admitting Provider Obstetrics & Gynecology; Visit Provider Obstetrics & Gynecology
DX: O24.429 Gestational diabetes mellitus in childbirth, unspecified control (principal); O69.82X0 Labor and delivery complicated by other cord entanglement, without compression, not applicable or unspecified; Z3A.39 39 weeks gestation of pregnancy; Z37.0 Single live birth
CPT/HCPCS: 36415; 82948; 85014; 85018; 85025; 86592; 86850; 86900; 86901; 88307; A9270; J2590; J2795; J7120

== ENCOUNTER 2022-10-20 19:28 | Observation (INO) | payer OTHER, SELFPAY ==
[2022-10-20] VITALS (22 sets, daily range): BP systolic 108–126; BP diastolic 69–76; PULSE 75–108; O2SAT 98–100; BMI 27.1
[2022-10-20 20:32] LABS: Appearance Urine Cloudy (Clear); Bacteria Urine Rare /hpf; Bilirubin Urine Negative (Negative); Blood Urine Negative (Negative); Color Urine Yellow (Yellow); Glucose Urine UA Negative (Negative); Ketones Urine Trace mg/dL (Negative); Leukocyte Esterase Ur 2+ LEU/UL (Negative); Nitrate Urine Negative (Negative); Non Pathogenic Casts 0-2; Protein Urine Trace mg/dL (Negative); RBC Urine 0-2 /hpf (0-2); Specific Grav Ur 1.021 (1.001-1.035); Squamous Epithelial Cell Urine Moderate /hpf (Few); WBC Urine 21-50 /hpf; pH Urine 6.5 (5.0-9.0)
[2022-10-20 20:38] LABS: Add Urine Microscopic? YES
[2022-10-20] MEDS: TERBUTALINE SULFATE 1 MG/ML VIAL 0.25 MG SUB-Q (22:00)
[2022-10-20 22:14] LABS: Hematocrit 36.1 % (37.0-47.0); Hemoglobin 12.2 g/dL (12.0-15.0); Mean Corpuscular HGB Conc 33.8 g/dl (32-36); Mean Corpuscular Hemoglobin 29.6 pg (26-34); Mean Corpuscular Volume 87.6 fl (80-100); Mean Platelet Volume 9.2 fl (7.4-10.4); Platelet Count Result 237 k/mm3 (150-375); Red Blood Count 4.12 M/mm3 (4.2-5.4); Red Cell Distribution Width 12.6 % (11.5-14.5); White Blood Count 8.8 K/mm3 (4.5-10.0)
[2022-10-20 22:24] LABS: Alanine Aminotransferase 18 U/L (6-35); Albumin Level 3.7 g/dL (3.5-5.1); Alkaline Phosphatase 106 U/L (38-126); Anion Gap 6 mmol/L (8-16); Aspartate Amino Transferase 20 U/L (14-36); Bilirubin,Total 0.4 mg/dL (0.2-1.3); Blood Urea Nitrogen 6 mg/dL (7-17); Calcium 8.1 mg/dL (8.4-10.2); Carbon Dioxide 24 mmol/L (22-30); Chloride 104 mmol/L (98-107); Estimated Glomerular Filt Rate > 60; Glucose 88 mg/dL (65-110); Potassium 3.5 mmol/L (3.4-5.0); Sodium 134 mmol/L (137-145)
[2022-10-20] MEDS: cefTRIAXone 1 GM VIAL IM (22:24)
[2022-10-20 22:52] LABS: Fetal Fibronectin Positive
--- NOTE | 2022-10-20 23:33 | OBADM ---
This patient, Louann Mcknight, admitted to the OB room OB Post 117 for observation. Patient/family oriented to hospital policies and general routines including ID bracelet, bed and alarms, visiting hours, pain management, procedures, bathroom and other care routines, personal items, smoking policy, room service/diet, and visiting hours. Patient/Family are encouraged to report perceived risks to care and to ask questions if they do not understand what they are told or what they should do.
[2022-10-21] VITALS (26 sets, daily range): BP systolic 118–130; BP diastolic 67–76; PULSE 28–118; O2SAT 72–100
[2022-10-21] MEDS: TERBUTALINE SULFATE 1 MG/ML VIAL 0.25 MG SUB-Q
--- NOTE | 2022-11-05 13:33 | PM.OBTRLD ---
OB - Triage/Final Diagnosis Visit Information Comments/Additional reasons for admission: I have assessed the risk for this patient, Louann Mcknight, and determined that she would benefit from observation care. Evaluation Laboratory results: Laboratory Tests 10/20/22 10/20/22 10/20/22 20:11 22:07 22:10 WBC 8.8 RBC 4.12 L Hgb 12.2 Hct 36.1 L MCV 87.6 MCH 29.6 MCHC 33.8 RDW 12.6 Plt Count 237 MPV 9.2 Sodium 134 L Potassium 3.5 Chloride 104 Carbon Dioxide 24 Anion Gap 6 L BUN 6 L Creatinine 0.40 L Estim Creat Clear Calc Not Reportable Estimated GFR > 60 Glucose 88 Calcium 8.1 L Total Bilirubin 0.4 AST 20 ALT 18 Alkaline Phosphatase 106 Total Protein 7.0 Albumin 3.7 Urine Color Yellow Urine Appearance Cloudy H Urine pH 6.5 Ur Specific [place] 1.021 Urine Protein Trace Urine Glucose (UA) Negative Urine Ketones Trace H Ur Blood (Man) Negative Urine Nitrate Negative Urine Bilirubin Negative Urine Urobilinogen 1.0 Leukocyte Esterase Rfl 2+ H Urine RBC 0-2 Urine WBC 21-50 H Ur Squamous Epith Cells Moderate Urine Bacteria Rare Urine Casts 0-2 Fibronectin Positive Final Diagnosis (1) contractions: Code(s): O47.9 - False labor, unspecified Status: Acute
--- NOTE | 2022-11-05 13:36 | PM.OBTRLD ---
OB - Triage/Final Diagnosis Visit Information Comments/Additional reasons for admission: I have assessed the risk for this patient, Louann Mcknight, and determined that she would benefit from observation care. Evaluation Laboratory results: Laboratory Tests 10/20/22 10/20/22 10/20/22 20:11 22:07 22:10 WBC 8.8 RBC 4.12 L Hgb 12.2 Hct 36.1 L MCV 87.6 MCH 29.6 MCHC 33.8 RDW 12.6 Plt Count 237 MPV 9.2 Sodium 134 L Potassium 3.5 Chloride 104 Carbon Dioxide 24 Anion Gap 6 L BUN 6 L Creatinine 0.40 L Estim Creat Clear Calc Not Reportable Estimated GFR > 60 Glucose 88 Calcium 8.1 L Total Bilirubin 0.4 AST 20 ALT 18 Alkaline Phosphatase 106 Total Protein 7.0 Albumin 3.7 Urine Color Yellow Urine Appearance Cloudy H Urine pH 6.5 Ur Specific [place] 1.021 Urine Protein Trace Urine Glucose (UA) Negative Urine Ketones Trace H Ur Blood (Man) Negative Urine Nitrate Negative Urine Bilirubin Negative Urine Urobilinogen 1.0 Leukocyte Esterase Rfl 2+ H Urine RBC 0-2 Urine WBC 21-50 H Ur Squamous Epith Cells Moderate Urine Bacteria Rare Urine Casts 0-2 Fibronectin Positive Final Diagnosis (1) False labor: Code(s): O47.9 - False labor, unspecified Status: Acute
== END 2022-10-21 01:45 | disposition home or self-care (01) ==
PROVIDERS: Admitting Provider Obstetrics & Gynecology; Visit Provider Obstetrics & Gynecology
DX: O47.02 False labor before 37 completed weeks of gestation, second trimester (principal); Z3A.26 26 weeks gestation of pregnancy
CPT/HCPCS: 36415; 80053; 81001; 82731; 85027; 87086; 87088; 96360; 96372; A9270; G0378; G0379; J0696; J3105; J7121

== ENCOUNTER 2022-10-21 21:58 | Observation (INO) | payer OTHER, SELFPAY ==
[2022-10-21] VITALS (21 sets, daily range): BP systolic 106–117; BP diastolic 61–71; PULSE 89–111; TEMP 36.7; O2SAT 93–99
--- NOTE | 2022-10-21 21:58 | PC.NURSE ---
Patient arrived to OB unit ambulating. Patient reports contractions that started while she was at [facility] at 2000. Patient states after returning home from [facility] at approximately 2100 contractions became more frequent. patient reports contractions as mild in intensity. Abdomen palpates soft between contractions and mild contraction palpated. movement noted and reported by patient.
--- NOTE | 2022-10-21 22:38 | PC.NURSE ---
Notified Dr. Garcia of patient contractions. Notified of VS. FHT appropriate for gestational age. Orders received.
[2022-10-21] MEDS: TERBUTALINE SULFATE 1 MG/ML VIAL 0.25 MG SUB-Q (22:48)
--- NOTE | 2022-10-21 22:48 | PC.NURSE ---
Patient updated on plan of care. Patient medication education given for procardia and terbutaline. Patient states understanding of all education and denies questions.
[2022-10-21] MEDS: NIFEdipine 30 MG TAB.ER.24 PO (22:53)
--- NOTE | 2022-10-21 23:49 | PC.NURSE ---
Updated Dr. Garcia on maternal assessment including continued contractions, orders received.
[2022-10-22] VITALS (19 sets, daily range): BP systolic 115–121; BP diastolic 62–64; PULSE 54–111; RESP 16; TEMP 37; O2SAT 82–100
[2022-10-22] MEDS: DEXTROSE 5%/LACTATED RINGERS 1,000 ML 999 ML IV CONT (00:12)
[2022-10-22] MEDS: TERBUTALINE SULFATE 1 MG/ML VIAL 0.25 MG SUB-Q (00:13)
--- NOTE | 2022-10-22 01:10 | PC.NURSE ---
Patient states she is no longer having contractions or cramping and is resting comfortably. Discharge instruction reviewed with patient. labor precautions were reviewed. Patient instructed to call Dr. Chowdhury office to schedule follow-up appointment 10/22/2022. Patient instructed to picker feeder procardia prescription at her pharmacy and take it as prescribed. Patient states understanding of all discharge instructions and precautions and denies questions. Patient states she is not having any pain and is comfortable being discharged. Patient left OB unit ambulating at 0111.
--- NOTE | 2022-11-25 18:02 | PM.OBTRLD ---
OB - Triage/Final Diagnosis Visit Information Comments/Additional reasons for admission: I have assessed the risk for this patient, Louann Mcknight, and determined that she would benefit from observation care. Final Diagnosis (1) False labor: Code(s): O47.9 - False labor, unspecified Status: Acute
== END 2022-10-22 01:11 | disposition home or self-care (01) ==
PROVIDERS: Admitting Provider Obstetrics & Gynecology; Visit Provider Obstetrics & Gynecology
DX: O47.02 False labor before 37 completed weeks of gestation, second trimester (principal); Z3A.26 26 weeks gestation of pregnancy
CPT/HCPCS: 96360; 96372; A9270; G0378; G0379; J3105; J7121

== ENCOUNTER 2022-10-26 10:40 | Observation (INO) | payer OTHER, SELFPAY ==
[2022-10-26] VITALS (10 sets, daily range): BP systolic 102–121; BP diastolic 57–75; PULSE 79–109
--- NOTE | 2022-10-26 11:20 | OBADM ---
This patient, Louann Mcknight, admitted to the OB room OB Post 115 for observation. Patient/family oriented to hospital policies and general routines including ID bracelet, bed and alarms, visiting hours, pain management, procedures, bathroom and other care routines, personal items, smoking policy, room service/diet, and visiting hours. Patient/Family are encouraged to report perceived risks to care and to ask questions if they do not understand what they are told or what they should do.
[2022-10-26] MEDS: BETAMETHASONE SOD PHOS/ACETATE 30 MG/5 ML VIAL 12 MG IM (12:11)
[2022-10-26] MEDS: TERBUTALINE SULFATE 1 MG/ML VIAL 0.25 MG SUB-Q (13:03)
--- NOTE | 2022-10-29 17:04 | PM.OBTRLD ---
OB - Triage/Final Diagnosis Visit Information Date of evaluation: 10/26/22 Reason for evaluation: threatened labor Comments/Additional reasons for admission: I have assessed the risk for this patient, Louann Meade Juan Luis, and determined that she would benefit from observation care.
== END 2022-10-26 15:15 | disposition home or self-care (01) ==
PROVIDERS: Admitting Provider Obstetrics & Gynecology; Visit Provider Obstetrics & Gynecology
DX: O47.9 False labor, unspecified (principal); Z3A.00 Weeks of gestation of pregnancy not specified
CPT/HCPCS: 84112; 96372; G0378; G0379; J0702; J3105

== ENCOUNTER 2022-10-27 12:05 | Outpatient (CLI) | payer OTHER, SELFPAY ==
[2022-10-27] MEDS: BETAMETHASONE SOD PHOS/ACETATE 30 MG/5 ML VIAL 12 MG IM (12:19)
== END 2022-10-27 12:23 | disposition home or self-care (01) ==
LOC: ANHOBOP 12:09 → ANHLDR 12:10
PROVIDERS: Visit Provider Obstetrics & Gynecology
DX: O20.0 Threatened abortion (principal); Z3A.00 Weeks of gestation of pregnancy not specified
CPT/HCPCS: 96372; 99199; J0702

== ENCOUNTER 2022-12-24 21:20 | Observation (INO) | payer OTHER, SELFPAY ==
[2022-12-24 21:30] VITALS: TEMP 36.6; BMI 30.9
--- NOTE | 2022-12-24 21:50 | PC.NURSE ---
Pt reports she is possibly leaking fluid upon on arrival. Pt reports she has been forrest off and on all week but upon arrival she was not forrest. When patient wasplaced on monitor pt rports she had just started forrest. PO fluids given. No other complaints at this time. Pt reports she was on procardia for contractions in this but was recently told she could stop taking it.
--- NOTE | 2022-12-24 22:07 | PC.NURSE ---
Dr. Garcia called and made parker pt was here for possible leaking of fluid. ROM plus was negative. Dr. Garcia made aware patient has been forrest off and on this week and started forrest forrest right when she was put on the monitor. Orders for a dose of terbutaline
[2022-12-24 22:15] VITALS: BP 118/79; PULSE 85
--- NOTE | 2022-12-24 22:20 | PC.NURSE ---
Addendum entered by Roxanna Jefferson RN 12/24/22 23:04: This conversation with Dr. gomez was at [id number] Original Note: Dr. Gomez updated pt is refusing terbutaline but contractions have started to slow down. Orders to do SVE, then watch patient and recheck her. Orders to discharge patient if no change..
--- NOTE | 2022-12-24 22:20 | PC.NURSE ---
Pt is refusing terbutaline. Pt educated on reasoning for it.
[2022-12-24 22:31] VITALS: BP 115/73; PULSE 83
[2022-12-24 22:46] VITALS: BP 110/72; PULSE 82
--- NOTE | 2023-01-13 23:20 | PM.OBTRLD ---
OB - Triage/Final Diagnosis Visit Information Comments/Additional reasons for admission: I have assessed the risk for this patient, Louann Mcknight, and determined that she would benefit from observation care. Final Diagnosis (1) Amniotic fluid leaking: Code(s): O42.90 - Premature rupture of membranes, unspecified as to length of time between rupture and onset of labor, unspecified weeks of gestation Status: Acute
== END 2022-12-25 00:38 | disposition home or self-care (01) ==
PROVIDERS: Admitting Provider Obstetrics & Gynecology; Visit Provider Obstetrics & Gynecology
DX: O42.913 Preterm premature rupture of membranes, unspecified as to length of time between rupture and onset of labor, third trimester (principal); Z3A.35 35 weeks gestation of pregnancy
CPT/HCPCS: 84112; G0378; G0379

== ENCOUNTER 2022-12-25 09:07 | Inpatient (IN) | payer OTHER, SELFPAY ==
[2022-12-25] VITALS (22 sets, daily range): BP systolic 99–133; BP diastolic 54–85; PULSE 83–107; RESP 16; TEMP 36.8–37.1; BMI 30.9; BMI 31.3
--- NOTE | ~2022-12-25 | US_ITS ---
EXAMINATION: US OB limited w BPP DATE: 12/25/2022 11:26 INDICATION: Biophysical profile and amniotic fluid index assessment during third trimester TECHNIQUE: Real-time pelvic ultrasound was performed. The interpreting radiologist was not present fo r the study. COMPARISON: None FINDINGS: There is a single living fetus in vertex presentation. The placenta is to the right. heart rate is 150 beats per minute (bpm). The amniotic fluid index is 14.2 cm which is normal (normal range: 7. 9 cm to 24.9 cm). Biophysical profile performed by the technologist: breathing (30 sec sustained breathing in 30 minutes): 2 out of 2 movement (3 gross body movements in 30 minutes): 2 out of 2 tone (one episode of potjwyt-hzrykaplg-sbuthhq limb movement): 2 out of 2 Amniotic fluid pocket (2 cm): 2 out of 2 Total score: 8 out of 8 IMPRESSION: 1. Single living fetus in vertex presentation. 2. Biophysical profile 8 out of 8. Reviewed, dictated and finalized at location L.
--- NOTE | 2022-12-25 09:45 | OBADM ---
This patient, Louann Mcknight, admitted to the OB room 116 for observation for vaginal spotting. Patient/family oriented to hospital policies and general routines including ID bracelet, bed and alarms, visiting hours, pain management, procedures, bathroom and other care routines, personal items, smoking policy, room service/diet, and visiting hours. Patient/Family are encouraged to report perceived risks to care and to ask questions if they do not understand what they are told or what they should do.
[2022-12-25] MEDS: NIFEdipine 30 MG TAB.ER.24 PO (14:36)
[2022-12-25] MEDS: ZOLPIDEM TARTRATE (*CRX) 5 MG TABLET PO (21:09)
[2022-12-25 21:23] LABS: Basophils Percent Auto 0.4 % (0.2-1.2); Eosinophils Absolute Auto 0.1 K/mm3 (0-0.3); Eosinophils Percent Auto 0.8 % (0-4.4); Hematocrit 30.8 % (37.0-47.0); Immature Granulocyte Absolute 0.06 K/mm3 (0.00-0.031); Immature Granulocyte Percent A 0.5 % (0-0.5); Lymphocytes Absolute Auto 2.37 K/mm3 (0.9-3.2); Lymphocytes Percent Auto 21.4 % (18.3-44.2); Mean Corpuscular HGB Conc 32.5 g/dl (32-36); Mean Corpuscular Hemoglobin 27.4 pg (26-34); Mean Corpuscular Volume 84.4 fl (80-100); Mean Platelet Volume 9.6 fl (7.4-10.4); Monocytes Absolute Auto 0.7 K/mm3 (0.1-0.6); Monocytes Percent Auto 6.4 % (2.6-8.5); Neutrophils Absolute Auto 7.8 K/mm3 (1.3-6.7); Neutrophils Percent Auto 70.5 % (45.5-73.1); Platelet Count Result 252 k/mm3 (150-375); Red Blood Count 3.65 M/mm3 (4.2-5.4); Red Cell Distribution Width 12.8 % (11.5-14.5); White Blood Count 11.1 K/mm3 (4.5-10.0)
[2022-12-26] VITALS (122 sets, daily range): BP systolic 91–129; BP diastolic 60–89; PULSE 74–101; RESP 16; TEMP 36.6–36.9; O2SAT 96–100
[2022-12-26] MEDS: LACTATED RINGERS 1,000 ML 125 ML IV CONT ×3 (05:01→11:03)
[2022-12-26] MEDS: OXYTOCIN 30 UNITS/NS 500 ML 30 UNITS/500 ML BAG IV CONT (05:04)
[2022-12-26] MEDS: ceFAZolin 2 GM/D5W 50 ML 2 GM/50 ML BAG IVPB (05:05)
[2022-12-26] MEDS: diphenhydrAMINE HCl INJ 50 MG/ML VIAL (05:44)
[2022-12-26] MEDS: VANCOMYCIN 1,000 MG/NS 250 ML 1,000 MG/250 ML BAG 250 MG IVPB (07:46)
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
[2022-12-26 08:11] LABS: Rapid Plasma Reagin Non-Reactive (NonReactive)
[2022-12-26 09:39] LABS: Free T4 Free Thyroxine 0.95 ng/mL (0.78-2.19)
--- NOTE | 2022-12-26 11:04 | WPDANESEPP ---
Anes - Eval Pre Procedure Procedure: Labor epidural Date/Time: 12/26/22 11:04 Surgeon: Radha Preop Diagnosis: Pain during labor Pre Op Diagnosis: Bleeding Patient Data Age: 27 Gender: F Height: 1.47 m Weight: 68 kg Last Vital Signs Temp 36.6 C 12/26/22 10:30 Pulse 89 12/26/22 10:33 Resp 16 12/25/22 17:56 BP 119/74 12/26/22 10:33 Pulse Ox 100 12/26/22 07:29 O2 Del Method Room Air 12/25/22 09:45 Allergies Allergy/AdvReac Type Severity Reaction Status Date / Time Penicillins Allergy Mild Rash Verified 12/25/22 20:45 amoxicillin Allergy Rash Verified 12/25/22 20:45 Home Medications Medication Instructions Recorded Confirmed Type vit no.95-ferrous 1 tablet PO DAILY 12/25/22 12/25/22 History fumarate 28 mg-folic acid 800 mcg tablet () Laboratory Tests 12/25/22 12/26/22 21:17 08:42 WBC 11.1 H K/mm3 (4.5-10.0) RBC 3.65 L M/mm3 (4.2-5.4) Hgb 10.0 L g/dL (12.0-15.0) Hct 30.8 L % (37.0-47.0) MCV 84.4 fl (80-100) MCH 27.4 pg (26-34) MCHC 32.5 g/dl (32-36) RDW 12.8 % (11.5-14.5) Plt Count 252 k/mm3 (150-375) MPV 9.6 fl (7.4-10.4) Immature Gran % (Auto) 0.5 % (0-0.5) Neut % (Auto) 70.5 % (45.5-73.1) Lymph % (Auto) 21.4 % (18.3-44.2) [place] % (Auto) 6.4 % (2.6-8.5) Eos % (Auto) 0.8 % (0-4.4) Baso % (Auto) 0.4 % (0.2-1.2) Lymph # (Auto) 2.37 K/mm3 (0.9-3.2) [place] # (Auto) 0.7 H K/mm3 (0.1-0.6) Eos # (Auto) 0.1 K/mm3 (0-0.3) Baso # (Auto) 0.0 K/mm3 (0.0-0.1) Abs Immat Gran (auto) 0.06 H K/mm3 (0.00-0.031) Absolute Neuts (auto) 7.8 H K/mm3 (1.3-6.7) Absolute Nucleated RBC 0.0 K/mm3 (0.0-0.012) Nucleated RBC % 0.0 % (0.0-0.2) TSH 0.960 uIU/mL (0.465-4.680) Free T4 0.95 ng/mL (0.78-2.19) RPR Non-reactive (NonReactive) Blood Type B Positive Antibody Screen Negative Patient hx anesthesia problems: none Family hx anesthesia problems: none Results Review: All pre-operative results and documents have been reviewed as part of the pre-operative evaluation. [facility] Past Medical History Medical History Anxiety Depression GDM (gestational diabetes mellitus) Graves disease (normal spontaneous vaginal delivery) Family History Family History Grandparent Diabetes mellitus Family history of thyroid disease Father Family history of alcoholism Mother Family history of thyroid disease Family history of malignant neoplasm of cervix Heart disease Coronary stent patent Cardiac defibrillator in place Social History Social History Smoking status: Former smoker Tobacco type: cigarettes Alcohol intake: current Substance use: never Lack of Transportation: No Lack of Food: Never True Current Housing: I Have Housing Concerned About Future Housing: No Difficulty Paying Gas/Electric Bills: No Difficulty Paying for Meds: No Currently Unemployed: No Education: High School Diploma/GED Difficulty w/ Childcare or Family Care: No Gender identity (if verbalized by the patient): Female Spiritual care concerns: No Exam Day of Procedure 12/26/22 11:04 Patient weight: normal Heart: regular rate and rhythm Lungs: clear to auscultation Airway: Mallampati scale class II Neurological: alert and oriented
[2022-12-26] MEDS: ACETAMINOPHEN 500 MG TABLET 1000 MG PO (14:31)
--- NOTE | 2022-12-26 15:34 | PM.OBPRVD ---
OB - Delivery Note Procedure Delivery date: 12/26/22 Procedure: Events: Elective Induction of Labor (Non reassuring status, maternal bleeding) Induction method: AROM and Per Pitocin Protocol Delivery monitor: External FHT and External Uterine Route of delivery: Specimen: Yes Quantitative Blood Loss (ml): 75 Anesthesia type: Epidural Disposition: Floor Baby Date of : 12/26/22 Time of : 15:24 Weeks of gestation at delivery: 36 gender: Female Weight (pounds): 5 Weight (ounces): 7 presentation: vertex position: Left Occiput Anterior Placenta delivery description: Spontaneous Cord Vessel Description: 3 Vessels and Clamped/Cut score one minute: 9 score five minutes: 9 Narrative: mother and baby in stable condition
[2022-12-26] MEDS: OXYTOCIN 30 UNITS/NS 500 ML 30 UNITS/500 ML BAG 125 UNITS IV CONT (15:58)
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
[2022-12-26] MEDS: IBUPROFEN 600 MG TABLET PO (17:32)
[2022-12-26] MEDS: BENZOCAINE 20% AER SPR (*SP) 56 GM CAN 1 SPRAY TOPICAL (17:33)
[2022-12-26] MEDS: WITCH HAZEL 40 PADS 1 PAD TOPICAL (17:33)
--- NOTE | 2022-12-26 18:10 | PC.NURSE ---
Patient transferred to post room #278 via (W/C). Oriented to unit, room, information board, rooming in, admission packet and security measures. Patient verbalizes understanding.
[2022-12-27 00:14] VITALS: BP 106/65; PULSE 90; RESP 18; TEMP 36.7; O2SAT 99
[2022-12-27] MEDS: IBUPROFEN 600 MG TABLET PO ×3 (02:30→19:26)
[2022-12-27 05:54] LABS: Hematocrit 31.9 % (37.0-47.0); Hemoglobin 10.5 g/dL (12.0-15.0)
--- NOTE | 2022-12-27 07:33 | PM.OBPNVD ---
OB - PN: Subj Subjective Date/time seen: 12/27/22 07:33 pp day 1 doing well no complaints OB - PN: Obj Data Labs 12/27/22 05:15 Labs: Laboratory Results - last 24 hr 12/25/22 12/26/22 12/27/22 21:17 08:42 05:15 Hgb 10.5 L Hct 31.9 L TSH 0.960 Free T4 0.95 RPR Non-reactive OB - PN A/P Plan day: 1 Plan: routine care Time Spent With Patient Time: Total time spent is greater than 50% in coordination of care (as documented) at patient's floor/unit and/or counseling patient: Review of Systems Review of Systems: All systems reviewed & are unremarkable except as noted in HPI and below Exam Const: General: cooperative and healthy appearing Chest: Chest palpation & inspection: normal inspection of the chest Resp: Effort & Inspection: normal respiratory effort Cardio: Rate: regular rate Rhythm: regular rhythm GI: Other: soft Skin: General skin exam: normal color Neuro: General: patient oriented x3 Extrem: Right lower extremity: normal to inspection Left lower extremity: normal to inspection Psych: Appearance: grossly normal
[2022-12-27 09:19] VITALS: BP 110/80; PULSE 78; RESP 18; TEMP 36.7; O2SAT 100
--- NOTE | 2022-12-27 10:50 | WPDANLDPN2 ---
Anes-Prog Note L&D Date/Time: 12/27/22 10:50 Comfortable throughout: labor and delivery Neuraxial method: epidural Epidural/Spinal procedure site: clean & non-tender Neuro status: Neuro function grossly intact. Cardiovascular status: normal Respiratory status: normal Airway patency: baseline Mental status: baseline Post-Op hydration status: normal Vital Signs: Last Vital Signs Temp 36.7 C 12/27/22 09:19 Pulse 78 12/27/22 09:19 Resp 18 12/27/22 09:19 BP 110/80 12/27/22 09:19 Pulse Ox 100 12/27/22 09:19 O2 Del Method Room Air 12/26/22 18:41 Pain score (VAS): 10 I/O: Intake & Output 12/26/22 12/27/22 12/27/22 23:59 07:59 15:59 Output Total 50 Balance -50 Post-procedural complaints: none Patient feedback: Patient satisfied with anesthetic care.
[2022-12-27 12:05] VITALS: BP 113/73; PULSE 84; RESP 16; TEMP 37.1; O2SAT 99
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
[2022-12-27] MEDS: DOCUSATE SODIUM 100 MG CAPSULE PO (19:27)
[2022-12-27 20:00] VITALS: BP 112/71; PULSE 80; RESP 18; TEMP 36.5; O2SAT 98
[2022-12-28] MEDS: IBUPROFEN 600 MG TABLET PO (04:06)
--- NOTE | 2022-12-28 07:30 | PM.OBPNVD ---
OB - PN: Subj Subjective Date/time seen: 12/28/22 07:30 Interval history: s/p vaginal delivery day 2 doing well bottle feeding OB - PN: Obj Data Labs 12/27/22 05:15 OB - PN A/P Time Spent With Patient Time: Total time spent is greater than 50% in coordination of care (as documented) at patient's floor/unit and/or counseling patient: Review of Systems Review of Systems: All systems reviewed & are unremarkable except as noted in HPI and below Exam Const: General: cooperative and healthy appearing Resp: Effort & Inspection: normal respiratory effort Cardio: Rate: regular rate Rhythm: regular rhythm GI: Other: soft Skin: General skin exam: normal color Extrem: Right lower extremity: normal to inspection Left lower extremity: normal to inspection Psych: Appearance: grossly normal
--- NOTE | 2022-12-28 07:33 | PM.OBDSVD ---
DS: Admitting Diagnosis Discharge Date 12/28/22 Admitting Diagnosis IOL, non reassurring heart tones DS: Discharge Diagnosis Discharge Diagnosis (1) (normal spontaneous vaginal delivery): Code(s): O80 - Encounter for full-term uncomplicated delivery Status: Acute OB - DS: Summary OB Procedures : None OB Procedures Intrapartum: Spontaneous Vag Delivery OB Procedures: : None Time Spent with Patient Time attestation: Total time spent providing and/or coordinating discharge services: DS: Data Data Completed and Pending Pending studies at discharge: Pending at discharge 12/26/22 15:27 Surgical [PTH] Routine Discharge Plan Discharge Attending physician on discharge: Nida Garcia Discharging Clinician: Ena Henderson Patient Disposition: Home, Self-Care Activity: pelvic rest Diet: regular Patient Instructions: Antibiotic Form Stand Alone Forms: General Discharge Information Follow-up/Referrals: Ena Henderson, CNM [Certified Nurse Cad Detailer] - 4 Weeks Discharge Medications: New ibuprofen 600 mg Tablet 600 mg PO Q6H PRN (Reason: Cramping) Qty: 30 0RF Continued PNV cmb#95-ferrous fumarate-FA [] 28 mg iron- 800 mcg Tablet 1 tablet PO DAILY Date of admission: 12/25/22 15:55 Primary Care Provider: PHYSICIAN,HEALTH ASSESSMENT AND TREATMENT TEACHER Admitting Provider: Nida Garcia Attending physician on admission: Nida Garcia Condition: Stable
[2022-12-28] MEDS: ACETAMINOPHEN 325 MG TABLET 650 MG PO (07:43)
[2022-12-28 07:50] VITALS: BP 109/73; PULSE 66; RESP 16; TEMP 36.6; O2SAT 100
[2022-12-29 09:37] VITALS: BP 122/80; PULSE 89; RESP 18; TEMP 36.6; O2SAT 100
== END 2022-12-28 15:18 | disposition home or self-care (01) | DRG 560 ==
LOC: ANHOBPP 09:12 → ANHLDR 20:34 → ANHOB2 12-26 18:12
PROVIDERS: Advanced Practice Midwife; Admitting Provider Obstetrics & Gynecology; Visit Provider Obstetrics & Gynecology
DX: O99.284 Endocrine, nutritional and metabolic diseases complicating childbirth (principal); E05.90 Thyrotoxicosis, unspecified without thyrotoxic crisis or storm; O76 Abnormality in fetal heart rate and rhythm complicating labor and delivery; Z3A.36 36 weeks gestation of pregnancy; Z37.0 Single live birth; Z88.0 Allergy status to penicillin; Z87.891 Personal history of nicotine dependence
CPT/HCPCS: 36415; 76815; 76819; 84439; 84443; 85014; 85018; 85025; 86592; 86850; 86900; 86901; 88307; A9270; G0378; G0379; J0690; J1200; J2590; J2795; J3370; J7120

== ENCOUNTER 2023-05-17 11:27 | Emergency (ER) | payer OTHER, SELFPAY ==
--- NOTE | ~2023-05-17 | US_ITS ---
EXAMINATION: US soft tissue head and neck DATE: 05/17/2023 INDICATION: Lymphadenopathy. TECHNIQUE: Multiple grayscale and Doppler ultrasound images of the head and neck were obtained. COMPARISON: None FINDINGS: There are normal lymph nodes in left neck in the patient's area of concern. IMPRESSION: 1. Normal lymph nodes in left neck in the patient's area of concern. Reviewed, dictated and finalized at location A. INUING EDUCATION DEAN
[2023-05-17 11:51] VITALS: BP 117/91; PULSE 83; RESP 18; TEMP 36.6; O2SAT 100
--- NOTE | 2023-05-17 15:28 | ED.FEMALEGU ---
HPI - Female Genitourinary General Chief complaint: Vaginal Bleeding Stated complaint: heavy vaginal bleeding Time Seen by Provider: 05/17/23 13:56 Source: patient Mode of arrival: ambulatory Limitations: no limitations History of Present Illness HPI Narrative: This is a 28 year old female that presents to the ER with multiple complaints. Reports her period has been a little heavier than usual. She is not on any control. Also reports she has had some swollen areas in her neck over the last couple of weeks. Denies fever, cough, congestion, sore throat or dysuria. Related Data Home Medications Medication Instructions Recorded Confirmed vit no.95-ferrous 1 tablet PO DAILY 12/25/22 12/25/22 fumarate 28 mg-folic acid 800 mcg tablet () Allergies Allergy/AdvReac Type Severity Reaction Status Date / Time Penicillins Allergy Mild Rash Verified 05/17/23 13:49 amoxicillin Allergy Rash Verified 05/17/23 13:49 Review of Systems Review of Systems: CONSTITUTIONAL: Denies fever ENT: Denies rhinorrhea, congestion, sore throat GENITOURINARY: Denies dysuria or hematuria. All systems reviewed & are unremarkable except as noted in HPI and below PMFSH Past Medical History Medical History Anxiety Depression GDM (gestational diabetes mellitus) Graves disease (normal spontaneous vaginal delivery) Family History Family History Grandparent Diabetes mellitus Family history of thyroid disease Father Family history of alcoholism Mother Family history of thyroid disease Family history of malignant neoplasm of cervix Heart disease Coronary stent patent Cardiac defibrillator in place Social History Social History Smoking status: Former smoker Tobacco type: cigarettes Alcohol intake: current Substance use: never Lack of Transportation: No Lack of Food: Never True Current Housing: I Have Housing Concerned About Future Housing: No Difficulty Paying Gas/Electric Bills: No Difficulty Paying for Meds: No Currently Unemployed: No Education: High School Diploma/GED Difficulty w/ Childcare or Family Care: No Gender identity (if verbalized by the patient): Female Spiritual care concerns: No Exam Narrative: GENERAL: Well-appearing, well-nourished, and in no acute distress. HEAD: Normocephalic, atraumatic. EYES: EOMI. ENT: Nares clear, no rhinorrhea or epistaxis. Mucous membranes moist. Oropharynx without tonsillar hypertrophy exudate or other lesions. Bilateral TMs pearly rodriguez non-bulging NECK: Supple. Bilateral posterior cervical adenopathy, small mobile lymph nodes CHEST: Clear to auscultation. No respiratory distress. No wheezes rales or rhonchi HEART: Regular rate and rhythm. No murmur heard. Normal peripheral pulses. EXTREMITIES: Normal range of motion. No edema. SKIN: Warm, dry, no rash. NEURO: No focal deficits. Alert and oriented x3. PSYCH: Normal mood and affect PELVIC: Patient deferred Course Course Emergency Course: patient updated on workup and agrees with plan of care Vital Signs Vital signs: Vital Signs Temperature 97.8 F 05/17/23 11:51 Pulse Rate 83 05/17/23 11:51 Respiratory Rate 18 05/17/23 11:51 Blood Pressure 117/91 H 05/17/23 11:51 Pulse Oximetry 100 05/17/23 11:51 Oxygen Delivery Room Air 05/17/23 11:51 Temperature 97.8 F 05/17/23 11:51 Pulse Rate 83 05/17/23 11:51 Respiratory Rate 18 05/17/23 11:51 Blood Pressure 117/91 H 05/17/23 11:51 Pulse Oximetry 100 05/17/23 11:51 Oxygen Delivery Room Air 05/17/23 11:51 MDM - Female Genitourinary MDM Narrative Medical decision making narrative: Patient presents to the emergency department with multiple complaints. Reporting abnormal uterine bleeding. Also repo
[2023-05-17 16:15] LABS: Basophils Absolute Auto 0.1 K/mm3 (0.0-0.1); Basophils Percent Auto 0.9 % (0.2-1.2); Eosinophils Absolute Auto 0.4 K/mm3 (0-0.3); Eosinophils Percent Auto 5.3 % (0-4.4); Hematocrit 38.5 % (37.0-47.0); Hemoglobin 12.9 g/dL (12.0-15.0); Immature Granulocyte Absolute 0.01 K/mm3 (0.00-0.031); Immature Granulocyte Percent A 0.1 % (0-0.5); Lymphocytes Absolute Auto 2.36 K/mm3 (0.9-3.2); Lymphocytes Percent Auto 34.6 % (18.3-44.2); Mean Corpuscular HGB Conc 33.5 g/dl (32-36); Mean Corpuscular Hemoglobin 27.7 pg (26-34); Mean Corpuscular Volume 82.8 fl (80-100); Mean Platelet Volume 9.5 fl (7.4-10.4); Monocytes Absolute Auto 0.5 K/mm3 (0.1-0.6); Monocytes Percent Auto 6.9 % (2.6-8.5); Neutrophils Absolute Auto 3.6 K/mm3 (1.3-6.7); Neutrophils Percent Auto 52.2 % (45.5-73.1); Platelet Count Result 325 k/mm3 (150-375); Red Blood Count 4.65 M/mm3 (4.2-5.4); Red Cell Distribution Width 12.8 % (11.5-14.5); White Blood Count 6.8 K/mm3 (4.5-10.0)
[2023-05-17 16:46] VITALS: BP 115/76; PULSE 87; RESP 18; O2SAT 100
== END 2023-05-17 16:47 | disposition home or self-care (01) ==
PROVIDERS: Emergency Provider Physician Assistant
DX: N93.9 Abnormal uterine and vaginal bleeding, unspecified (principal); R59.1 Generalized enlarged lymph nodes; E05.00 Thyrotoxicosis with diffuse goiter without thyrotoxic crisis or storm; Z87.891 Personal history of nicotine dependence
CPT/HCPCS: 36415; 76536; 81025; 85025; 99284

== ENCOUNTER 2023-10-09 15:14 | Emergency (ER) | payer OTHER, SELFPAY ==
--- NOTE | 2023-10-09 15:38 | PC.NURSE ---
Patient and visitor seen walking out of ED in no distress and without issue.
== END 2023-10-09 16:13 | disposition left against medical advice (07) ==
LOC: ANHED 16:07
PROVIDERS: Referring Provider Family Medicine
DX: R11.2 Nausea with vomiting, unspecified (principal)
CPT/HCPCS: 99199